=== PATIENT | female | born 1985 | race Caucasian/White ===

== ENCOUNTER 2018-02-16 23:09 | Emergency (ER) | payer OTHER ==
--- NOTE | 2018-02-17 01:51 | CT ---
EXAMINATION TYPE: CT brain wo con DATE OF EXAM: 02/17/2018 COMPARISON: None HISTORY: fall to rt side of head CT DLP: 958.20 mGycm. Automated Exposure Control for Dose Reduction was Utilized. TECHNIQUE: CT scan of the head is performed without contrast. FINDINGS: Ventricles and sulci appear normal. There is no mass effect nor midline shift. There is no sign of intracranial hemorrhage. The calvarium is intact. IMPRESSION: Negative CT scan of the brain.
[2018-02-17] MEDS ORDERED: ONDANSETRON ODT 4 MG TAB PO STA (02:01)
[2018-02-17] MEDS ORDERED: METOCLOPRAMIDE 5 MG/ML 2 ML VIAL IM STA (02:01)
[2018-02-17] MEDS ORDERED: KETOROLAC 30 MG/ML 1 ML VIAL IM STA (02:01)
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
[2018-02-17 03:30] VITALS: BP 128/80; PULSE 76; RESP 18; TEMP 97.3
== END 2018-02-17 03:31 | disposition home or self-care (01) ==
LOC: EC 23:09
DX: S06.0X0A Concussion without loss of consciousness, initial encounter (principal); Z87.891 Personal history of nicotine dependence; Z88.0 Allergy status to penicillin; W01.198A Fall on same level from slipping, tripping and stumbling with subsequent striking against other object, initial encounter; Y92.009 Unspecified place in unspecified non-institutional (private) residence as the place of occurrence of the external cause
CPT/HCPCS: 70450; 99283; 96372 ×2; J2765; J1885

== ENCOUNTER 2018-04-17 09:32 | Emergency (ER) | payer OTHER ==
[2018-04-17 09:37] VITALS: TEMP 97.4
[2018-04-17] MEDS ORDERED: SODIUM CHLORIDE 0.9% 1,000 ML IV STA (10:26)
[2018-04-17] MEDS ORDERED: KETOROLAC 30 MG/ML 1 ML VIAL IVP STA (10:26)
[2018-04-17] MEDS ORDERED: ONDANSETRON ODT 8 MG TAB.RAPDIS PO STA (10:26)
--- NOTE | 2018-04-17 10:52 | ED ---
Abdominal Pain HPI - General Chief Complaint: Abdominal Pain Stated Complaint: Back pain, poss UTI Time Seen by Provider: 04/17/18 09:47 Source: patient Mode of arrival: ambulatory Limitations: no limitations - History of Present Illness Initial Comments: 32-year-old female patient presents to the emergency department today for evaluation of left-sided abdominal pain, left flank pain, and dysuria. Patient states started having dysuria, hematuria, and urinary frequency last evening. Patient states overnight her symptoms worsened to include the nausea, abdominal pain, and back pain. Patient states overnight she did feel chilled and feverish however she did take ibuprofen. Patient denies any chance of . Denies any abnormal vaginal bleeding or discharge. Denies any concern for STDs. Patient denies any recent rash, shortness breath, chest pain , diarrhea, constipation, back pain, numbness, tingling, dizziness, weakness, headache, visual changes, or any other complaints. - Related Data Home Medications Medication Instructions Recorded Confirmed Biotin 5,000 mcg PO DAILY 04/17/18 04/17/18 Cyanocobalamin [Vitamin B-12] 500 mcg PO DAILY 04/17/18 04/17/18 Previous Rx's Medication Instructions Recorded Cephalexin [Keflex] 500 mg PO Q6H #56 cap 04/17/18 Fluconazole [Diflucan] 150 mg PO ONCE #2 tab 04/17/18 Allergies Allergy/AdvReac Type Severity Reaction Status Date / Time amoxicillin AdvReac yeast Verified 04/17/18 11:20 infection Review of Systems ROS Statement: Those systems with pertinent positive or pertinent negative responses have been documented in the HPI. ROS Other: All systems not noted in ROS Statement are negative. Past Medical History Past Medical History: No Reported History History of Any Multi-Drug Resistant Organisms: None Reported Past Surgical History: Section Additional Past Surgical History / Comment(s): x2 Past Psychological History: No Psychological Hx Reported Smoking Status: Former smoker Past Alcohol Use History: Occasional Past Drug Use History: None Reported General Exam Limitations: no limitations General appearance: alert, in no apparent distress, other (Social well-developed , well-nourished adult female patient in no acute distress. Vital signs upon presentation are temperature 97.4F, pulse 68, respirations 18, blood pressure 102/71, pulse ox 99% on room air.) Eye exam: Present: normal appearance, PERRL, EOMI. Absent: scleral icterus, conjunctival injection, periorbital swelling ENT exam: Present: normal exam, normal oropharynx, mucous membranes moist Respiratory exam: Present: normal lung sounds bilaterally. Absent: respiratory distress, wheezes, rales, rhonchi, stridor Cardiovascular Exam: Present: regular rate, normal rhythm, normal heart sounds. Absent: systolic murmur, diastolic murmur, rubs, gallop, clicks GI/Abdominal exam: Present: soft, tenderness (Left lower quadrant tenderness, left upper quadrant tenderness), normal bowel sounds. Absent: distended, guarding, rebound, rigid Back exam: Present: normal inspection. Absent: CVA tenderness (R), CVA tenderness (L) Neurological exam: Present: alert, oriented X3, CN II-XII intact Psychiatric exam: Present: normal affect, normal mood Skin exam: Present: warm, dry, intact, normal color. Absent: rash Course Vital Signs 04/17/18 09:34 Temperature 97.4 F L Pulse Rate 68 Respiratory 18 Rate Blood Pressure 102/71 O2 Sat by Pulse 99 Oximetry Medical Decision Making - Medical Decision Making 32-year-old female patient presents to the emergency department today for evaluation of dysuria, hematuria, and left flank discomfort. Physical examination did reveal mild suprapubic tenderness. No CVA tenderness. Labs reviewed and revealed normal white blood cell, urinalysis is turbid appearance with 2+ protein, large amount of blood, positive nitrite, large leukocyte esterase, greater than 182 red blood cells, greater than 182 white blood cells, many white blood cell clumps. Patient is not . She was given 2 g Rocephin IV here in the department. She'll be started on 2 weeks of Keflex. She is instructed to increase fluids. Urine culture results are pending. She' ll be discharged home at this time to follow-up with her primary care physician for recheck as soon as possible. We did discuss possibility of a kidney stone however we will withhold CT at this time if symptoms persist she is instructed to return immediately. She verbalizes understanding and agrees this plan. - Lab Data Result diagrams: 04/17/18 10:55 04/17/18 10:55 Lab Results 04/17/18 04/17/18 04/17/18 Range/Units 09:52 09:52 10:55 WBC (3.8-10.6) k/uL RBC (3.80-5.40) m/uL Hgb (11.4-16.0) gm/dL Hct (34.0-46.0) % MCV (80.0-100.0) fL MCH (25.0-35.0) pg MCHC (31.0-37.0) g/dL RDW (11.5-15.5) % Plt Count (150-450) k/uL Neutrophils % % Lymphocytes % % Monocytes % % Eosinophils % % Basophils % % Neutrophils # (1.3-7.7) k/uL Lymphocytes # (1.0-4.8) k/uL Monocytes # (0-1.0) k/uL Eosinophils # (0-0.7) k/uL Basophils # (0-0.2) k/uL Sodium 138 (137-145) mmol/L Potassium 4.0 (3.5-5.1) mmol/L Chloride 106 (98-107) mmol/L Carbon Dioxide 24 (22-30) mmol/L Anion Gap 8 mmol/L BUN 13 (7-17) mg/dL Creatinine 0.62 (0.52-1.04) mg/dL Est GFR (CKD-EPI)AfAm >90 (>60 ml/min/1.73 sqM) Est GFR (CKD-EPI)NonAf >90 (>60 ml/min/1.73 sqM) Glucose 102 H (74-99) mg/dL Plasma Lactic Acid Moe (0.7-2.0) mmol/L Calcium 8.9 (8.4-10.2) mg/dL Total Bilirubin 0.4 (0.2-1.3) mg/dL AST 27 (14-36) U/L ALT 29 (9-52) U/L Alkaline Phosphatase 52 (38-126) U/L Total Protein 6.7 (6.3-8.2) g/dL Albumin 4.0 (3.5-5.0) g/dL Amylase 35 (30-110) U/L Lipase 39 (23-300) U/L Urine Color Light Red Urine Appearance Turbid H (Clear) Urine pH 6.0 (5.0-8.0) Ur Specific [place] 1.019 (1.001-1.035) Urine Protein 3+ H (Negative) Urine Glucose (UA) Negative (Negative) Urine Ketones Negative (Negative) Urine Blood Large H (Negative) Urine Nitrite Positive H (Negative) Urine Bilirubin Negative (Negative) Urine Urobilinogen <2.0 (<2.0) mg/dL Ur Leukocyte Esterase Large H (Negative) Urine RBC >182 H (0-5) /hpf Urine WBC >182 H (0-5) /hpf Urine WBC Clumps Many H (None) /hpf Urine HCG, Qual Not Detected (Not Detectd) 04/17/18 04/17/18 Range/Units 10:55 10:55 WBC 8.2 (3.8-10.6) k/uL RBC 4.15 (3.80-5.40) m/uL Hgb 13.4 (11.4-16.0) gm/dL Hct 38.6 (34.0-46.0) % MCV 92.9 (80.0-100.0) fL MCH 32.3 (25.0-35.0) pg MCHC 34.8 (31.0-37.0) g/dL RDW 12.6 (11.5-15.5) % Plt Count 166 (150-450) k/uL Neutrophils % 83 % Lymphocytes % 10 % Monocytes % 5 % Eosinophils % 1 % Basophils % 0 % Neutrophils # 6.8 (1.3-7.7) k/uL Lymphocytes # 0.9 L (1.0-4.8) k/uL Monocytes # 0.4 (0-1.0) k/uL Eosinophils # 0.1 (0-0.7) k/uL Basophils # 0.0 (0-0.2) k/uL Sodium (137-145) mmol/L Potassium (3.5-5.1) mmol/L Chloride (98-107) mmol/L Carbon Dioxide (22-30) mmol/L Anion Gap mmol/L BUN (7-17) mg/dL Creatinine (0.52-1.04) mg/dL Est GFR (CKD-EPI)AfAm (>60 ml/min/1.73 sqM) Est GFR (CKD-EPI)NonAf (>60 ml/min/1.73 sqM) Glucose (74-99) mg/dL Plasma Lactic Acid Moe 0.8 (0.7-2.0) mmol/L Calcium (8.4-10.2) mg/dL Total Bilirubin (0.2-1.3) mg/dL AST (14-36) U/L ALT (9-52) U/L Alkaline Phosphatase (38-126) U/L Total Protein (6.3-8.2) g/dL Albumin (3.5-5.0) g/dL Amylase (30-110) U/L Lipase (23-300) U/L Urine Color Urine Appearance (Clear) Urine pH (5.0-8.0) Ur Specific [place] (1.001-1.035) Urine Protein (Negative) Urine Glucose (UA) (Negative) Urine Ketones (Negative) Urine Blood (Negative) Urine Nitrite (Negative) Urine Bilirubin (Negative) Urine Urobilinogen (<2.0) mg/dL Ur Leukocyte Esterase (Negative) Urine RBC (0-5) /hpf Urine WBC (0-5) /hpf Urine WBC Clumps (None) /hpf Urine HCG, Qual (Not Detectd) Disposition Clinical Impression: Acute pyelonephritis Disposition: HOME SELF-CARE Condition: Good Instructions: Kidney Infection (ED) Additional Instructions: Increase fluids. Complete antibiotic prescription in full. Follow-up through primary care physician for recheck in 1-2 days. Return immediately for any new , worsening, or concerning symptoms. Prescriptions: Cephalexin [Keflex] 500 mg PO Q6H #56 cap Fluconazole [Diflucan] 150 mg PO ONCE #2 tab Is patient prescribed a controlled substance at d/c from ED?: No Referrals: None,Stated [Primary Care Provider] - 1-2 days Time of Disposition: 12:39
[2018-04-17] MEDS ORDERED: ONDANSETRON 4 MG/2 ML VIAL IVP STA (11:06)
[2018-04-17 11:23] LABS: Basophils % (A) 0 %; Eosinophils # (A) 0.1 k/uL (0-0.7); Eosinophils % (A) 1 %; HCT 38.6 % (34.0-46.0); HGB 13.4 gm/dL (11.4-16.0); Lymphocytes # (A) 0.9 k/uL (1.0-4.8); Lymphocytes % (A) 10 %; MCH 32.3 pg (25.0-35.0); MCHC 34.8 g/dL (31.0-37.0); MCV 92.9 fL (80.0-100.0); Mean Platelet Volume 6.6; Monocytes # (A) 0.4 k/uL (0-1.0); Monocytes % (A) 5 %; Neutrophils # (A) 6.8 k/uL (1.3-7.7); Neutrophils % (A) 83 %; Platelet Count 166 k/uL (150-450); RBC 4.15 m/uL (3.80-5.40); RDW 12.6 % (11.5-15.5); WBC 8.2 k/uL (3.8-10.6)
[2018-04-17 11:35] LABS: ALT 29 U/L (9-52); AST 27 U/L (14-36); Alkaline Phosphatase 52 U/L (38-126); Amylase 35 U/L (30-110); Anion Gap 8 mmol/L; Blood Urea Nitrogen 13 mg/dL (7-17); Calcium 8.9 mg/dL (8.4-10.2); Carbon Dioxide 24 mmol/L (22-30); Chloride 106 mmol/L (98-107); Glucose 102 mg/dL (74-99); Lipase 39 U/L (23-300); Sodium 138 mmol/L (137-145); Total Bilirubin 0.4 mg/dL (0.2-1.3); Total Protein 6.7 g/dL (6.3-8.2)
[2018-04-17 11:40] LABS: Appearance,Urine Turbid (Clear); Bilirubin,Urine Negative (Negative); Blood,Urine Large (Negative); Color,Urine Light Red; Glucose,Urine (UA) Negative (Negative); Ketones,Urine Negative (Negative); Leukocyte Esterase,Urine Large (Negative); Nitrite,Urine Positive (Negative); Protein,Urine 3+ (Negative); RBC,Urine >182 /hpf (0-5); Specific Gravity,Urine 1.019 (1.001-1.035); Urobilinogen,Urine <2.0 mg/dL (<2.0); WBC,Urine >182 /hpf (0-5)
[2018-04-17] MEDS ORDERED: cefTRIAXone 2,000 MG in SODIUM CHLORIDE 0.9% 100 ML IVPB STA (11:47)
[2018-04-17 14:27] VITALS: BP 100/60; PULSE 61; RESP 14
== END 2018-04-17 14:20 | disposition home or self-care (01) ==
LOC: EC 09:32
DX: N10 Acute pyelonephritis (principal); Z87.891 Personal history of nicotine dependence; Z79.899 Other long term (current) drug therapy; Z88.0 Allergy status to penicillin; Z53.8 Procedure and treatment not carried out for other reasons
CPT/HCPCS: 36415; 80053; 82150; 83605; 83690; 85025; 81001; 81025; 87040; 96365; 96375 ×2; 96361; 99284; J2405; J0696; J1885

== ENCOUNTER 2021-12-05 23:33 | Emergency (ER) | payer OTHER ==
[2021-12-05 23:45] VITALS: BP 122/87; TEMP 98.6
--- NOTE | 2021-12-06 00:10 | XR ---
EXAMINATION TYPE: XR shoulder complete LT DATE OF EXAM: 12/06/2021 COMPARISON: NONE HISTORY: Shoulder pain TECHNIQUE: 3 views FINDINGS: I see no fracture nor dislocation. Joint spaces are normal. No pathologic calcification. IMPRESSION: Negative left shoulder exam. No fracture.
[2021-12-06] MEDS ORDERED: KETOROLAC 15 MG/ML 1 ML VIAL IM STA (00:34)
[2021-12-06] MEDS ORDERED: ACET/COD 300 MG/30 MG STARTER PACK 6 TAB BTL PO STA (00:53)
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
[2021-12-06 02:11] VITALS: PULSE 86; RESP 18
== END 2021-12-06 01:30 | disposition home or self-care (01) ==
LOC: EC 23:33
DX: M25.512 Pain in left shoulder (principal); F17.209 Nicotine dependence, unspecified, with unspecified nicotine-induced disorders; Z88.0 Allergy status to penicillin
CPT/HCPCS: 73030; 99283; 96372; J1885